=== PATIENT | male | born 1935 | race African-American/Black ===

== ENCOUNTER 2024-09-20 11:24 | Inpatient (IN) | payer OTHER ==
[2024-09-20 12:05] LABS: BASO % 0.2 % (0-2.0); EOS % 1.2 % (0-4.5); HEMATOCRIT 42.3 % (35.4-49); HEMOGLOBIN 13.9 GM/dL (11.7-16.9); LYMPH % 9.8 % (8-40); MCH 30.8 pg (25.7-33.7); MCHC 32.8 g/dl (32.0-35.9); MEAN CELL VOLUME 93.9 fl (80-96); MEAN PLT VOLUME 8.2 fl (7.5-11.1); MONO % 12.8 % (3.8-10.2); PLATELET COUNT 283 10^3/uL (134-434); RDW 15.9 % (11.9-15.9); WHITE BLOOD COUNT 10.7 K/mm3 (4.0-10.0)
[2024-09-20 12:11] LABS: INR 1.19 (0.83-1.09); PROTHROMBIN TIME (PATIENT) 13.4 SEC (9.7-13.0)
[2024-09-20 12:23] LABS: POTASSIUM 4.6 mmol/L (3.5-5.1)
[2024-09-20 12:25] LABS: CALCIUM 9.2 mg/dL (8.5-10.1); MAGNESIUM 2.4 mg/dL (1.8-2.4)
[2024-09-20 12:26] LABS: ALBUMIN 2.9 g/dl (3.4-5.0); BLOOD UREA NITROGEN 35.6 mg/dL (7-18)
[2024-09-20 12:29] LABS: CREATININE 1.7 mg/dL (0.55-1.3); PHOSPHOROUS 3.5 mg/dL (2.5-4.9)
[2024-09-20] MEDS ORDERED: ACETAMINOPHEN INJECTION 100 ML ONE (13:08)
[2024-09-20] MEDS: ACETAMINOPHEN 1000 MG/100 ML BAG IVPB ONE (13:21)
[2024-09-20] MEDS: LACTATED RINGERS SOLUTION 1000 ML INFUS.BAG IV ONE (13:39)
[2024-09-20 15:46] LABS: EPI CELLS 2 /uL (0-25.1); HYALINE CASTS 0 /uL (0-3.1); PH,URINE 5.5 (5.0-8.0); URINE APPEARANCE CLEAR; URINE BACTERIA 3851 /uL (0-1359); URINE BILIRUBIN NEGATIVE (NEGATIVE); URINE COLOR DK YELLOW; URINE GLUCOSE (UA) NEGATIVE (NEGATIVE); URINE KETONE NEGATIVE (NEGATIVE); URINE LEUK ESTERASE 1+ (NEGATIVE); URINE NITRITE POSITIVE (NEGATIVE); URINE PROTEIN 1+ (NEGATIVE); URINE RBC 8747 /uL (0-23.9); URINE WBC 67 /uL (0-25.8)
[2024-09-20] MEDS ORDERED: CEFTRIAXONE 1 G/50 ML PREMIX 50 ML IVPB ONE (15:51)
[2024-09-20] MEDS: CEFTRIAXONE 1,000 MG in DEXTROSE 5%-WATER - 50 ML IVPB ONE (16:00)
[2024-09-20] MEDS: LACTATED RINGERS SOLUTION 1,000 ML/1,000 ML INFUS.BAG IV SCH (16:48)
[2024-09-20] MEDS: INSULIN ASPART SLIDING SCALE (NOVOLOG) 1 VIAL SQ SCH (22:24)
[2024-09-20] MEDS: HEPARIN NA (PORCINE) 5,000 UNITS/ML 1ML VIAL SQ SCH (22:24)
[2024-09-21] MEDS: CEFTRIAXONE 1 G/50 ML PREMIX 50 ML IVPB SCH (09:07)
[2024-09-21 09:24] LABS: HEMATOCRIT 44.2 % (35.4-49); MCH 30.3 pg (25.7-33.7); MCHC 31.8 g/dl (32.0-35.9); MEAN CELL VOLUME 95.4 fl (80-96); MEAN PLT VOLUME 8.6 fl (7.5-11.1); PLATELET COUNT 208 10^3/uL (134-434); RBC 4.63 M/mm3 (4.00-5.60); RDW 15.5 % (11.9-15.9)
[2024-09-21 09:54] LABS: POTASSIUM 5.2 mmol/L (3.5-5.1)
[2024-09-21 09:58] LABS: ALBUMIN 2.3 g/dl (3.4-5.0); BLOOD UREA NITROGEN 26.2 mg/dL (7-18); CALCIUM 8.5 mg/dL (8.5-10.1); MAGNESIUM 2.1 mg/dL (1.8-2.4)
[2024-09-21 10:00] LABS: CREATININE 1.2 mg/dL (0.55-1.3); PHOSPHOROUS 2.4 mg/dL (2.5-4.9)
[2024-09-21 10:03] LABS: BILIRUBIN,TOTAL 0.9 mg/dL (0.2-1); TOT PROT 6.9 g/dl (6.4-8.2)
[2024-09-21] MEDS: DEXTROSE 50%-WATER 25 GM/50 ML DISP.SYRIN IVPUSH ONE (11:55)
[2024-09-21] MEDS: DEXTROSE 5%-0.45% SALINE 1,000 ML IV SCH (11:57)
[2024-09-22] MEDS: ACETAMINOPHEN 1000 MG/100 ML BAG IVPB ONE (00:39)
[2024-09-22] MEDS: ERTAPENEM SODIUM 1 GM in SODIUM CHLORIDE 50 ML IVPB ONE (13:05)
[2024-09-22 13:46] LABS: POTASSIUM 4.6 mmol/L (3.5-5.1)
[2024-09-22 13:47] LABS: CALCIUM 8.6 mg/dL (8.5-10.1)
[2024-09-22 13:48] LABS: BLOOD UREA NITROGEN 18.2 mg/dL (7-18)
[2024-09-22 13:51] LABS: CREATININE 1.1 mg/dL (0.55-1.3)
[2024-09-22 13:52] LABS: PHOSPHOROUS 2.3 mg/dL (2.5-4.9)
[2024-09-22 13:58] VITALS: BMI 22.1
[2024-09-22] MEDS: AMINO ACIDS 4.25%/D5W 1,000 ML IV SCH (14:04)
[2024-09-22] MEDS: SODIUM CHLORIDE 1,000 ML IV SCH (14:45)
[2024-09-22] MEDS: MIRTAZAPINE 15 MG TABLET (FP) PO SCH (21:40)
[2024-09-23] MEDS: ACETAMINOPHEN 1000 MG/100 ML BAG IVPB ONE (03:26)
[2024-09-23 09:21] LABS: HEMATOCRIT 41.9 % (35.4-49); HEMOGLOBIN 13.6 GM/dL (11.7-16.9); MCH 30.5 pg (25.7-33.7); MCHC 32.4 g/dl (32.0-35.9); MEAN CELL VOLUME 94.1 fl (80-96); MEAN PLT VOLUME 8.7 fl (7.5-11.1); PLATELET COUNT 294 10^3/uL (134-434); RBC 4.45 M/mm3 (4.00-5.60); RDW 15.1 % (11.9-15.9); WHITE BLOOD COUNT 7.4 K/mm3 (4.0-10.0)
[2024-09-23 09:35] LABS: POTASSIUM 4.4 mmol/L (3.5-5.1)
[2024-09-23 09:38] LABS: ALBUMIN 2.4 g/dl (3.4-5.0); BLOOD UREA NITROGEN 20.1 mg/dL (7-18); CALCIUM 8.3 mg/dL (8.5-10.1)
[2024-09-23 09:41] LABS: CREATININE 1.1 mg/dL (0.55-1.3)
[2024-09-23 09:43] LABS: BILIRUBIN,TOTAL 0.5 mg/dL (0.2-1); TOT PROT 7.1 g/dl (6.4-8.2)
[2024-09-23] MEDS: ERTAPENEM SODIUM 1 GM in SODIUM CHLORIDE 50 ML IVPB SCH (10:44)
[2024-09-24 06:33] VITALS: RESP 18
[2024-09-25 08:08] LABS: POTASSIUM 4.8 mmol/L (3.5-5.1)
[2024-09-25 08:13] LABS: CALCIUM 9.2 mg/dL (8.5-10.1)
[2024-09-25 08:14] LABS: ALBUMIN 2.2 g/dl (3.4-5.0); BLOOD UREA NITROGEN 15.4 mg/dL (7-18)
[2024-09-25 08:17] LABS: CREATININE 1.1 mg/dL (0.55-1.3)
[2024-09-25 08:18] LABS: BILIRUBIN,TOTAL 0.4 mg/dL (0.2-1); TOT PROT 6.8 g/dl (6.4-8.2)
[2024-09-25 18:00] VITALS: BP 150/76; PULSE 79; TEMP 98.1
== END 2024-09-25 18:40 | DRG 689 ==
LOC: JER 11:24 → JERBED 14:48 → OBSVTOIN 18:16 → J7W 19:17
PROVIDERS: ADMIT Student in an Organized Health Care Education/Training Program
DX: N39.0 Urinary tract infection, site not specified (principal); R53.2 Functional quadriplegia; N17.9 Acute kidney failure, unspecified; F03.90 Unspecified dementia, unspecified severity, without behavioral disturbance, psychotic disturbance, mood disturbance, and anxiety; R13.19 Other dysphagia; E86.0 Dehydration; R62.7 Adult failure to thrive; Z68.22 Body mass index [BMI] 22.0-22.9, adult; B96.1 Klebsiella pneumoniae [K. pneumoniae] as the cause of diseases classified elsewhere; I12.9 Hypertensive chronic kidney disease with stage 1 through stage 4 chronic kidney disease, or unspecified chronic kidney disease; E11.22 Type 2 diabetes mellitus with diabetic chronic kidney disease; N18.9 Chronic kidney disease, unspecified; R25.9 Unspecified abnormal involuntary movements; Z51.5 Encounter for palliative care
CPT/HCPCS: 0241U-QW; 36415; 36569; 70450-TC; 71045-TC-FY; 76775-TC; 80048; 80053; 80061; 81003; 82550; 82553; 82962; 83036; 83605; 83735; 84100; 84484; 85025; 85027; 85610; 85730; 86850; 86900; 86901; 87040; 87086; 87186; 93005; 93010; 99285-25; G0378; J0131; J1644